=== PATIENT | female | born 1995 | race Two or more races ===

== ENCOUNTER 2019-04-06 13:14 | Emergency (ER) | payer MEDICAID ==
[~2019-04-06] VITALS: Ht 165.1 cm; Wt 74.4 kg
[2019-04-06 13:22] VITALS: Ht 165.1 cm; Wt 74.4 kg
[2019-04-06 16:02] LABS: BASOPHIL % 0.6 % (0-2); PLATELET COUNT 383 x10^3mcL (130-400); RED CELL DISTRIBUTION WIDTH 13.1 % (11.5-14.5)
[2019-04-06 16:07] LABS: CALCIUM 9.5 mg/dL (8.5-10.1); CARBON DIOXIDE 32.7 mmol/L (21-32); CHLORIDE SERUM 97 mmol/L (98-107); CREATININE SERUM 0.8 mg/dL (0.6-1.0); GFR1 > 60 mL/min; GLUCOSE SERUM 103 mg/dL (74-106); SODIUM SERUM 134 mmol/L (136-145)
[2019-04-06 16:15] LABS: ALKALINE PHOSPHATASE 76 U/L (46-116); ALT/SGPT 49 U/L (14-59); AST/SGOT 17 U/L (15-37); BILIRUBIN TOTAL 0.5 mg/dL (0.20-1.00)
[2019-04-06 16:33] LABS: microscopic required? YES; urine erythrocyte NEGATIVE (NEGATIVE)
[2019-04-06 17:02] VITALS: BP 110/65
== END 2019-04-06 18:55 | disposition short-term general hospital (02) ==
LOC: ED 13:14
PROVIDERS: Specialist
DX: G91.9 Hydrocephalus, unspecified (principal); R62.50 Unspecified lack of expected normal physiological development in childhood; Z98.2 Presence of cerebrospinal fluid drainage device
CPT/HCPCS: 87804; J2405; J7030